=== PATIENT | female | born 1960 | race Hispanic/Latino ===

== ENCOUNTER 2023-10-31 21:20 | Emergency (ER) | payer BC ==
[~2023-10-31] VITALS: Ht 157.5 cm; Wt 89.8 kg
[2023-10-31 23:14] LABS: BASOPHILS # (AUTO) 0.06 K/uL (0.00-0.20); BASOPHILS % (AUTO) 0.7 % (0.0-5.0); EOSINOPHILS # (AUTO) 0.17 K/uL (0.00-0.70); EOSINOPHILS % (AUTO) 2.1 % (0.0-8.0); HEMATOCRIT 36.6 % (36-48); IMMATURE GRANULOCYTE ABSOLUTE 0.02 K/uL (0-1); LYMPHOCYTES # (AUTO) 2.6 K/uL (1.0-4.8); LYMPHOCYTES % (AUTO) 31.3 % (21.0-51.0); MEAN CORPUSCULAR HEMOGLOBIN 31.3 pg (27.0-33.0); MEAN CORPUSCULAR HGB CONC 33.1 g/dL (32.0-36.0); MEAN CORPUSCULAR VOLUME 94.6 fL (79-99); MONOCYTES # (AUTO) 0.7 K/uL (0.1-1.0); MONOCYTES % (AUTO) 8.6 % (3.0-13.0); NEUTROPHILS # (AUTO) 4.7 K/uL (1.8-7.7); NEUTROPHILS % (AUTO) 57.1 % (40.0-77.0); PLATELET COUNT (AUTO) 283 K/uL (130-400); RED BLOOD CELL COUNT(AUTO) 3.87 MIL/uL (4.00-5.50); RED CELL DISTRIBUTION WIDTH 12.6 % (11.0-15.5); WHITE BLOOD COUNT (AUTO) 8.3 K/uL (4.8-10.8)
[2023-10-31 23:23] LABS: CREATININE 0.8 mg/dL (0.5-1.0); POTASSIUM 3.9 mmol/L (3.5-5.1)
[2023-10-31 23:26] LABS: APPEARANCE,URINE CLEAR (CLEAR); BILIRUBIN,URINE NEGATIVE (NEGATIVE); COLOR,URINE DARK-YELLOW (YELLOW); GLUCOSE, URINE (UA) NEGATIVE (NEGATIVE); KETONES,URINE NEGATIVE (NEGATIVE); LEUKOCYTE ESTERASE ,URINE 75 Leu/uL (NEGATIVE); NITRATE,URINE NEGATIVE (NEGATIVE); OCCULT BLOOD,URINE NEGATIVE (NEGATIVE); PROTEIN,URINE NEGATIVE (NEGATIVE); UROBILINOGEN,URINE 0.2 mg/dL (0.2-1.0)
[2023-10-31 23:27] LABS: ADD UA MICROSCOPIC YES
[2023-10-31 23:27] LABS: ALBUMIN 3.6 g/dL (3.5-5.0); BILIRUBIN,TOTAL 0.4 mg/dL (0.2-1.0); TOTAL PROTEIN, SERUM 7.3 g/dL (6.0-8.3)
[2023-10-31 23:28] LABS: BACTERIA,URINE MOD /HPF (None Seen); MUCUS,URINE RARE LPF (None Seen); SQUAMOUS EPITHELIAL CELL,UR FEW /HPF (0-2)
[2023-11-01] MEDS ORDERED: IOHEXOL-350 75 ML VIAL IV ONE (01:53)
[2023-11-01 02:31] VITALS: BP 132/71; PULSE 71; RESP 16; O2SAT 98
[2023-11-01] MEDS ORDERED: PHEN-847 PO (03:25)
[2023-11-01] MEDS ORDERED: NITR100C PO (03:25)
== END 2023-11-01 03:34 | disposition home or self-care (01) ==
LOC: EDH 21:20
DX: N39.0 Urinary tract infection, site not specified (principal); I10 Essential (primary) hypertension; E03.9 Hypothyroidism, unspecified
CPT/HCPCS: 99284; 80053; 85025; 87088; 81001; 36415; 74177; Q9967

== ENCOUNTER 2023-11-25 09:02 | Emergency (ER) | payer BC ==
[~2023-11-25] VITALS: Ht 157.5 cm; Wt 90.7 kg
[~2023-11-25 09:02] MED LIST: NITR100C PO; PHEN-847 PO
[2023-11-25 09:47] LABS: BASOPHILS # (AUTO) 0.05 K/uL (0.00-0.20); BASOPHILS % (AUTO) 0.7 % (0.0-5.0); EOSINOPHILS # (AUTO) 0.11 K/uL (0.00-0.70); EOSINOPHILS % (AUTO) 1.6 % (0.0-8.0); HEMATOCRIT 37.8 % (36-48); IMMATURE GRANULOCYTE ABSOLUTE 0.02 K/uL (0-1); LYMPHOCYTES % (AUTO) 28.9 % (21.0-51.0); MEAN CORPUSCULAR HEMOGLOBIN 30.9 pg (27.0-33.0); MEAN CORPUSCULAR HGB CONC 33.1 g/dL (32.0-36.0); MEAN CORPUSCULAR VOLUME 93.6 fL (79-99); MONOCYTES # (AUTO) 0.5 K/uL (0.1-1.0); MONOCYTES % (AUTO) 6.5 % (3.0-13.0); NEUTROPHILS # (AUTO) 4.4 K/uL (1.8-7.7); PLATELET COUNT (AUTO) 251 K/uL (130-400); RED BLOOD CELL COUNT(AUTO) 4.04 MIL/uL (4.00-5.50); RED CELL DISTRIBUTION WIDTH 12.7 % (11.0-15.5)
[2023-11-25 09:47] LABS: APPEARANCE,URINE CLEAR (CLEAR); BILIRUBIN,URINE NEGATIVE (NEGATIVE); COLOR,URINE LIGHT-YELLOW (YELLOW); GLUCOSE, URINE (UA) NEGATIVE (NEGATIVE); KETONES,URINE NEGATIVE (NEGATIVE); LEUKOCYTE ESTERASE ,URINE 25 Leu/uL (NEGATIVE); NITRATE,URINE NEGATIVE (NEGATIVE); OCCULT BLOOD,URINE NEGATIVE (NEGATIVE); PROTEIN,URINE NEGATIVE (NEGATIVE); UROBILINOGEN,URINE 0.2 mg/dL (0.2-1.0)
[2023-11-25 10:03] LABS: ALBUMIN 3.9 g/dL (3.5-5.0); BILIRUBIN,TOTAL 0.6 mg/dL (0.2-1.0); CREATININE 0.7 mg/dL (0.5-1.0); POTASSIUM 3.8 mmol/L (3.5-5.1); TOTAL PROTEIN, SERUM 7.6 g/dL (6.0-8.3)
[2023-11-25 10:06] LABS: ADD UA MICROSCOPIC YES
[2023-11-25 10:08] LABS: BACTERIA,URINE RARE /HPF (None Seen); SQUAMOUS EPITHELIAL CELL,UR RARE /HPF (0-2)
[2023-11-25] MEDS: METOCLOPRAMIDE 10 MG/2 ML VIAL IVP ONE (10:15)
[2023-11-25] MEDS: ONDANSETRON 4MG INJ IVP ONE (10:15)
[2023-11-25] MEDS: FAMOTIDINE 20MG VIAL IV ONE (10:15)
[2023-11-25] MEDS: LIDOCAINE HCL 2% VISCOUS 15 ML UDCUP PO ONE (10:16)
[2023-11-25] MEDS: DICYCLOMINE HCL 10 MG/5 ML ML PO ONE (10:16)
[2023-11-25] MEDS: MAG/ALUM/SIMETH 30 ML UDCUP PO ONE (10:16)
[2023-11-25] MEDS: MORPHINE 4 MG SYG IVP ONE (10:16)
[2023-11-25] MEDS: 0.9%NACL 1000ML 1,000 ML IV ONE (10:19)
[2023-11-25] MEDS ORDERED: IOHEXOL-350 75 ML VIAL IV ONE (11:13)
[2023-11-25] MEDS ORDERED: FAMO20TA8 PO (14:11)
[2023-11-25 14:32] VITALS: BP 158/78; PULSE 63; RESP 17; O2SAT 98
== END 2023-11-25 14:25 | disposition home or self-care (01) ==
LOC: EDH 09:02
DX: K29.00 Acute gastritis without bleeding (principal); I10 Essential (primary) hypertension; E03.9 Hypothyroidism, unspecified; Z79.899 Other long term (current) drug therapy; Z98.890 Other specified postprocedural states
CPT/HCPCS: 99284; 74177; 96374; 96375; 96361; 80053; 83690; 85025; 81001; 36415; J3490; J7030; J2405; J2270; J2765; Q9967

== ENCOUNTER 2024-07-02 21:34 | Emergency (ER) | payer BC ==
[~2024-07-02] VITALS: Ht 157.5 cm; Wt 90.7 kg
[~2024-07-02 21:34] MED LIST changes: +FAMO20TA8 PO; +HYOS-16 SL
[2024-07-02 22:11] LABS: BASOPHILS # (AUTO) 0.07 K/uL (0.00-0.20); BASOPHILS % (AUTO) 0.7 % (0.0-5.0); EOSINOPHILS % (AUTO) 1.1 % (0.0-8.0); HEMATOCRIT 35.2 % (36-48); IMMATURE GRANULOCYTE ABSOLUTE 0.04 K/uL (0-1); LYMPHOCYTES # (AUTO) 1.4 K/uL (1.0-4.8); LYMPHOCYTES % (AUTO) 14.8 % (21.0-51.0); MEAN CORPUSCULAR HEMOGLOBIN 32.6 pg (27.0-33.0); MEAN CORPUSCULAR HGB CONC 33.5 g/dL (32.0-36.0); MEAN CORPUSCULAR VOLUME 97.2 fL (79-99); MONOCYTES # (AUTO) 0.7 K/uL (0.1-1.0); MONOCYTES % (AUTO) 6.8 % (3.0-13.0); NEUTROPHILS # (AUTO) 7.2 K/uL (1.8-7.7); NEUTROPHILS % (AUTO) 76.2 % (40.0-77.0); PLATELET COUNT (AUTO) 257 K/uL (130-400); RED BLOOD CELL COUNT(AUTO) 3.62 MIL/uL (4.00-5.50); RED CELL DISTRIBUTION WIDTH 12.8 % (11.0-15.5); WHITE BLOOD COUNT (AUTO) 9.5 K/uL (4.8-10.8)
[2024-07-02] MEDS: LACTATED RINGERS 1000ML 1,000 ML IV ONE (22:15)
[2024-07-02 22:17] LABS: APPEARANCE,URINE CLOUDY (CLEAR); BILIRUBIN,URINE NEGATIVE (NEGATIVE); COLOR,URINE YELLOW (YELLOW); GLUCOSE, URINE (UA) NEGATIVE (NEGATIVE); KETONES,URINE NEGATIVE (NEGATIVE); LEUKOCYTE ESTERASE ,URINE 500 Leu/uL (NEGATIVE); NITRATE,URINE NEGATIVE (NEGATIVE); OCCULT BLOOD,URINE NEGATIVE (NEGATIVE); PH,URINE 5.5 (5.0-8.0); PROTEIN,URINE NEGATIVE (NEGATIVE); UROBILINOGEN,URINE 0.2 mg/dL (0.2-1.0)
[2024-07-02] MEDS: polyETHYLene GLYCol 3350 17 GM POWD.PACK PO ONE (22:17)
[2024-07-02] MEDS: ondanSETRON 4MG INJ IVP ONE (22:17)
[2024-07-02 22:21] LABS: CREATININE 0.9 mg/dL (0.5-1.0); POTASSIUM 3.8 mmol/L (3.5-5.1)
[2024-07-02 22:26] LABS: ALBUMIN 3.7 g/dL (3.5-5.0); BILIRUBIN,TOTAL 0.3 mg/dL (0.2-1.0); TOTAL PROTEIN, SERUM 7.1 g/dL (6.0-8.3)
[2024-07-02 22:36] LABS: ADD UA MICROSCOPIC YES
[2024-07-02 22:43] LABS: BACTERIA,URINE RARE /HPF (None Seen); MUCUS,URINE RARE LPF (None Seen); SQUAMOUS EPITHELIAL CELL,UR MANY /HPF (0-2)
--- NOTE | 2024-07-02 23:14 | ERN ---
General Chief Complaint: Abdominal Pain Stated Complaint: ABDOMINAL PAIN, HISTORY OF GALLSTONES Time Seen by MD: 21:40 History of Present Illness Initial Comments Ms. Arias is a 63-year-old female significant past medical history of morbid obesity, constipation, cholelithiasis who presents today with a chief complaint of abdominal pain. Patient apparently reports that she has not had bowel moveme nt for over 2 days. She reports that she recently decided to take a laxative and did have a significant bowel movement but still has pain. Allergies: Coded Allergies: No Known Allergies (Unverified Allergy, Unknown, 10/31/23) Home Meds Active Scripts Hyoscyamine Sulfate (Hyoscyamine Sulfate) 0.125 Mg Tab.subl, 0.125 MG SL TIDP PRN for cramp, #15 TAB.SL 0 Refills Prov:PA LUCAS MD 04/10/24 Famotidine (Famotidine) 20 Mg Tablet, 20 MG PO BID for 14 Days, #28 TAB Prov:MELISSA LARIOS [employer] 11/25/23 Phenazopyridine HCl (Pyridium) 200 Mg Tab, 200 MG PO TIDPC PRN for PAIN, #10 TAB TAKE WITH FOOD TO PREVENT STOMACH UPSET. Prov:KAREEM LIZAMA MD 11/01/23 Nitrofurantoin Macrocrystal (Nitrofurantoin) 100 Mg Capsule, 100 MG PO BID for 7 Days, #14 CAP Prov:KAREEM LIZAMA MD 11/01/23 Past Medical History Past Medical History: Arthritis, High Cholesterol, Hypertension, Hypothyroid, Renal Disese Medical History Other: RENAL ARTERY ANEURYSM Past Surgical History: BTL, Social History Social History: Negative, Lives with family Female( History) History: Not Applicable ROS Dictation Constitutional: Negative for fever,chills, and weight loss Eyes: Negative for injury, pain,redness, and discharge ENT: Negative for injury,pain or swelling Cardiovascular: Negative for chest pain, palpitations, and edema Respiratory: Negative for shortness of breath, cough, and wheezing, Abdomen/GI: Positive for abdominal pain Back: Negative for injury and pain : Negative for injury, bleeding and discharge MS/Extremity: Negative for injury and deformity Skin: Negative for rash, and discoloration Neuro: Negative for headache, weakness, numbness, tingling, and seizure Psych: Negative for suicide ideation, homicidal ideation, and hallucinations Physical Exam Physical Exam Dictation General: awake, alert, NAD Head/Face: Normocephalic, atraumatic Eyes: PERRL, EOMI, vision at baseline ENT: oral cavity clear Neck: Trachea midline, supple Cardiovascular: RRR, normal S1/S2, No MRGs, no JVD Respiratory: CTAB, no respiratory distress, No rales or wheezes Abdomen: Pain with palpation in the epigastric region Skin: Warm, dry, normal turgor, no rash MS/Extremity: Pulses equal, no cyanosis Neuro: COAx4, Results Laboratory and Microbiology Lab and Micro Result Laboratory Tests Test 07/02/24 22:04 07/02/24 22:08 White Blood Count 9.5 K/uL (4.8-10.8) Red Blood Count 3.62 MIL/uL (4.00-5.50) L Hemoglobin 11.8 g/dL (12.0-16.0) L Hematocrit 35.2 % (36-48) L Mean Corpuscular Volume 97.2 fL (79-99) Mean Corpuscular Hemoglobin 32.6 pg (27.0-33.0) Mean Corpuscular Hemoglobin Concent 33.5 g/dL (32.0-36.0) Red Cell Distribution Width 12.8 % (11.0-15.5) Platelet Count 257 K/uL (130-400) Mean Platelet Volume 8.5 fL (7.5-10.5) Immature Granulocyte % (Auto) 0.4 % (0-1) Neutrophils (%) (Auto) 76.2 % (40.0-77.0) Lymphocytes (%) (Auto) 14.8 % (21.0-51.0) L Monocytes (%) (Auto) 6.8 % (3.0-13.0) Eosinophils (%) (Auto) 1.1 % (0.0-8.0) Basophils (%) (Auto) 0.7 % (0.0-5.0) Neutrophils # (Auto) 7.2 K/uL (1.8-7.7) Lymphocytes # (Auto) 1.4 K/uL (1.0-4.8) Monocytes # (Auto) 0.7 K/uL (0.1-1.0) Eosinophils # (Auto) 0.10 K/uL (0.00-0.70) Basophils # (Auto) 0.07 K/uL (0.00-0.20) Absolute Immature Granulocyte (auto 0.04 K/uL (0-1) Nucleated Red Blood Cells 0.0 % (0.0-0.19) Sodium Level 141 mmol/L (136-145) Potassium Level 3.8 mmol/L (3.5-5.1) Chloride Level 104 mmol/L (101-111) Carbon Dioxide Level 28 mmol/L (21-32) Blood Urea Nitrogen 19 mg/dL (7-18) H Creatinine 0.9 mg/dL (0.5-1.0) Glomerular Filtration Rate Calc 72 mL/min (>90) Random Glucose 154 mg/dL (70-105) H Total Calcium 9.1 mg/dL (8.5-10.1) Total Bilirubin 0.3 mg/dL (0.2-1.0) Aspartate Amino Transf (AST/SGOT) 13 U/L (10-37) Alanine Aminotransferase (ALT/SGPT) 25 U/L (12-78) Alkaline Phosphatase 111 U/L (50-136) Total Protein 7.1 g/dL (6.0-8.3) Albumin 3.7 g/dL (3.5-5.0) Lipase 64 U/L (16-77) Urine Color YELLOW (YELLOW) Urine Appearance CLOUDY (CLEAR) H Urine pH 5.5 (5.0-8.0) Urine Specific [place] 1.025 (1.001-1.031) Urine Protein NEGATIVE mg/dL (NEGATIVE) Urine Glucose (UA) NEGATIVE mg/dL (NEGATIVE) Urine Ketones NEGATIVE mg/dL (NEGATIVE) Urine Occult Blood NEGATIVE (NEGATIVE) Urine Nitrate NEGATIVE (NEGATIVE) Urine Bilirubin NEGATIVE mg/dL (NEGATIVE) Urine Urobilinogen 0.2 mg/dL (0.2-1.0) Urine Leukocyte Esterase 500 Ivon/uL (NEGATIVE) H Urine RBC 2-5 /HPF (0-1) H Urine WBC 11-25 /HPF (0-1) H Urine Squamous Epithelial Cells MANY /HPF (0-2) Urine Bacteria RARE /HPF (None Seen) Urine Hyaline Casts 2-5 /LPF (0-1 /LPF) H MDM Patient appears to have a CT scan which shows constipation. Patient was gallbladder that has a stone but does not seemed to be actively infected or inflamed. Patient will be discharged with antibiotics as she appears to have a UTI MDM: Differential diagnosis: Constipation/UTI Rationale: Tests considered and ordered secondary to shared decision making include: Previous outside records reviewed: Old ER visits. Risk of complication and/or morbidity or mortality of patient management: None Medications-Per medication reconciliation Need for hospitalization: Patient does not meet criteria for hospitalization. Need for emergency major/minor surgery: No There are no social concerns with this patient. Prescription drug management Prescriptions will include symptomatic care Patient's prior external medical records from other ER visits were reviewed by me as indicated. Prior testing and results from previous visits were reviewed. Prior tests were taken into account with medical decision making and resource utilization, independent historian/historians were used to obtain complete medical history. I independently interpreted the test that were performed, results were reviewed by me and considered findings on radiology if ordered. Medical management and examination interpretation discussions were had by me with other qualified healthcare professionals as indicated for the patient's care. ED Course Orders Procedure Category Date Status Time Cbc With Differential LAB 07/02/24 Complete 21:52 Comprehensive LAB 07/02/24 Complete Metabolic Panel 21:52 Urinalysis Profile LAB 07/02/24 Complete 21:52 Abd Comp Decub/Erect RAD 07/02/24 Taken VWS 21:52 Lactated Ringers PHA 07/02/24 Complete 1000ml (Lactated 22:00 Ondansetron 4mg Inj PHA 07/02/24 Complete (Zofran 4mg Inj) 22:00 Lipase LAB 07/02/24 Complete 21:52 Polyethylene Glycol PHA 07/02/24 Complete 3350 (Miralax 3350 1 22:00 Bisacodyl (Dulcolax) PHA 07/02/24 Complete 22:00 Culture Urine EDIE 07/02/24 In Process 22:36 Ct Abdomen/Pelvis W/O CT 07/02/24 Resulted Contrast 22:50 Ceftriaxone 2gm Vial PHA 07/03/24 Complete (Rocephin 2gm Inj) 01:00 Current Medications Medications (Trade) Dose Ordered Sig/Virgilio Route PRN Reason Start Time Stop Time Status Last Admin Dose Admin Bisacodyl (DulcoLAX) 10 mg ONCE ONCE RC 07/02/24 22:00 07/02/24 22:01 DC 07/02/24 23:15 Ceftriaxone Sodium (Rocephin 2gm Inj) 2 gm ONCE ONCE IVPB 07/03/24 01:00 07/03/24 01:01 DC 07/03/24 01:04 Lactated Ringer's 1,000 ml @ 0 mls/hr ONCE ONCE IV 07/02/24 22:00 07/02/24 22:01 DC 07/02/24 22:15 Ondansetron HCl (zoFRAN 4MG INJ) 4 mg ONCE ONCE IVP 07/02/24 22:00 07/02/24 22:01 DC 07/02/24 22:17 Polyethylene Glycol (MIRalax 3350 17 GM POWD.PACK) 17 gm ONCE ONCE PO 07/02/24 22:00 07/02/24 22:01 DC 07/02/24 22:17 Vital Signs Date Time Temp Pulse Resp B/P (MAP) Pulse Ox O2 Delivery O2 Flow Rate FiO2 07/03/24 00:34 56 16 115/56 98 Room Air* 0 21 07/02/24 21:45 98.2 66 14 143/73 97 Room Air* 0 21 07/02/24 21:34 98.1 68 18 130/79 98 Room Air 0 07/02/24 21:34 98.1 68 18 130/79 98 Room Air* 0 21 DX & DISP Disposition: Discharge Departure Impression: Primary Impression: UTI (urinary tract infection) Additional Impression: Constipation Condition: Stable Scripts Sulfamethoxazole/Trimethoprim (Bactrim Ds Tablet) 800 Mg-160 Mg Tablet 1 TAB PO BID for 7 Days, #14 TAB 0 Refills Prov: YOKO CRUZ MD 07/03/24 Additional Instructions: Please follow up with your primary care physician in the next 1-7 days for continuance of care. Please take your antibiotics as prescribed Referrals: BRIDGETTE ANDERSEN MD (PCP) YOKO CRUZ MD Jul 02, 2024 23:14
[2024-07-02] MEDS: BisaCODYL 10 MG SUPP.RECT RC ONE (23:15)
--- NOTE | 2024-07-03 00:15 | HMCIMG ---
CT ABDOMEN/PELVIS W/O CONTRAST HISTORY: Abdominal pain COMPARISON: 04/10/2024 TECHNIQUE: Multiple sequential axial images of the abdomen and pelvis were obtained from the dome of the diaphragm through symphysis pubis. Patient was not given contrast through intravenous route. Oral contrast was not given. FINDINGS: No pleural effusion is seen bilaterally. There is no evidence of parenchymal disease or pulmonary nodule of the visualized lower lungs. Degenerative changes of the thoracolumbar spine are present. The heart is not enlarged. There is small periumbilical hernia with fat content. There is right renal artery aneurysm with calcification suspected measuring 19 mm. Gallstone is seen in the gallbladder. The liver, spleen, adrenal glands and pancreas are unremarkable. There is no evidence of hydronephrosis bilaterally. No evidence of renal stone is seen. There is diverticulosis. Fecal material is seen in the colon. There are normal size retroperitoneal and mesenteric lymph nodes. No ascites is seen. Atherosclerotic changes are present. Pelvic sidewalls are symmetric bilaterally. Bladder is well distended without wall thickening. IMPRESSION: 1. 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 Gallstone in the gallbladder. Diverticulosis. CT was performed with one or more following dose reduction techniques: automated exposure control, adjustment of the mA and kv according to patient's size, or use of a iterative reconstruction technique.
[2024-07-03] MEDS: CEFTRIAXONE 2GM VIAL IVPB ONE (01:04)
[2024-07-03] MEDS ORDERED: SULF1TAB42 PO (01:51)
[2024-07-03 01:58] VITALS: BP 127/62; PULSE 58; RESP 18; TEMP 98.4; O2SAT 98
--- NOTE | 2024-07-03 18:10 | HMCIMG ---
ABD COMP DECUB/ERECT VWS CLINICAL HISTORY: Abdominal pain COMPARISON: None FINDINGS: Two images of the abdomen were obtained. There is a moderate amount of fecal material in the colon. There is no radiopaque foreign body. There is mild diffuse degenerative changes in the spine. IMPRESSION: Mild constipation.
== END 2024-07-03 02:00 | disposition home or self-care (01) ==
LOC: EDBD 21:34 → EDH 21:34
DX: N39.0 Urinary tract infection, site not specified (principal); K59.00 Constipation, unspecified; E66.01 Morbid (severe) obesity due to excess calories; E03.9 Hypothyroidism, unspecified; E78.00 Pure hypercholesterolemia, unspecified; I10 Essential (primary) hypertension; M19.90 Unspecified osteoarthritis, unspecified site; Z98.51 Tubal ligation status; Z98.890 Other specified postprocedural states
CPT/HCPCS: 99284; 74176; 96361; 96375; 80053; 83690; 85025; 87086; 81001; 36415; 74021; 96365; J7120; J2405; J0696